=== PATIENT | male | born 1955 | race Caucasian/White ===

== ENCOUNTER 2018-06-11 08:25 | Emergency (ER) | payer OTHER ==
[~2018-06-11] VITALS: Ht 175.3 cm; Wt 99.8 kg
[~2018-06-11 08:25] MED LIST: ALBUTEROL SULF8.5 GM INH; LEVAQUIN750 MG ORAL; TAMIFLU75 MG ORAL
[2018-06-11 08:33] VITALS: BP 126/82
--- NOTE | 2018-06-11 08:33 | NUR ---
ED Nurse Note: PT WALKED IN TO ER TODAY FROM HOME. AOX4. PT C/O BURNING SENSATION WHILE URINATING AND INCREASED URINARY FREQUENCY X 1 WEEK. PT DENIES DISCHARGE OR BLEEDING. PT DENIES PAIN. PT DENIES DIFFICULTY URINATING.
[2018-06-11 09:06] LABS: APPEARANCE,URINE CLEAR; BILIRUBIN, URINE NEGATIVE (NEGATIVE); COLOR,URINE PALE YELLOW; GLUCOSE, URINE (UA) 4+ (NEGATIVE); KETONES,URINE 2+ (NEGATIVE); LEUKOCYTE ESTERASE ,URINE 3+ (NEGATIVE); NITRITE,URINE NEGATIVE (NEGATIVE); PH,URINE 5 (4.5-8.0); PROTEIN,URINE 1+ (NEGATIVE); UROBILINOGEN,URINE NORMAL MG/DL (0.0-1.0)
[2018-06-11 10:27] LABS: BASOPHILS % (AUTO) 1.1 % (0.0-2.0); EOSINOPHILS % (AUTO) 4.6 % (0.0-3.0); HEMATOCRIT 46.2 % (42.0-52.0); HEMOGLOBIN 15.8 G/DL (14.2-18.0); MEAN CORPUSCULAR VOLUME 85 FL (80-99); MONOCYTES % (AUTO) 6.6 % (1.0-10.0); NEUTROPHILS % (AUTO) 53.7 % (45.0-75.0); PLATELET COUNT 223 K/UL (150-450); RED BLOOD COUNT 5.47 M/UL (4.70-6.10); RED CELL DISTRIBUTION WIDTH 11.4 % (11.6-14.8); WHITE BLOOD COUNT 10.7 K/UL (4.8-10.8)
[2018-06-11 10:36] LABS: ANION GAP 11 mmol/L (5-15); BLOOD UREA NITROGEN 18 mg/dL (7-18); CALCIUM 9.7 MG/DL (8.5-10.1); CARBON DIOXIDE 25 MMOL/L (21-32); CHLORIDE 101 MMOL/L (98-107); CREATININE 1.1 MG/DL (0.55-1.30); POTASSIUM 4.1 MMOL/L (3.5-5.1); SODIUM 137 MMOL/L (136-145)
[2018-06-11 10:42] LABS: ALANINE AMINOTRANSFERASE 30 U/L (12-78); ALBUMIN 3.4 G/DL (3.4-5.0); ALBUMIN/GLOBULIN RATIO 0.9 (1.0-2.7); ALKALINE PHOSPHATASE 90 U/L (46-116); ASPARTATE AMINO TRANSFERASE 5 U/L (15-37); BILIRUBIN,TOTAL 0.4 MG/DL (0.2-1.0)
[2018-06-11] MEDS ORDERED: metFORMIN 500mg tab ORAL ONE (14:00)
[2018-06-11] MEDS ORDERED: Lotrisone Cream 15gm TOPIC ONE (14:00)
--- NOTE | 2018-06-11 14:00 | NUR ---
ED Nurse Note: pt states he cannot stay over night, refused to be admitted, ERMD notified
--- NOTE | 2018-06-11 14:16 | Emergency Room Report ---
History of Present Illness General Chief Complaint: Male Urogenital Problems Source: Patient Present Illness Allergies: Coded Allergies: No Known Allergies (Unverified , 06/29/13) Nursing Documentation-[facility] Past Medical History: No History, Except For Hx Hypertension: Yes Physical Exam Vital Signs Date Time Temp Pulse Resp B/P (MAP) Pulse Ox O2 Delivery O2 Flow Rate FiO2 06/11/18 08:29 98.2 70 20 121/79 98 Room Air Medical Decision Making Diagnostic Impression: Primary Impression: Balanitis Additional Impressions: Diabetes Hyperglycemia Laboratory Tests Test 06/11/18 08:40 06/11/18 10:15 Urine Color Pale yellow Urine Appearance Clear Urine pH 5 (4.5-8.0) Urine Specific [place] 1.020 (1.005-1.035) Urine Protein 1+ (NEGATIVE) H Urine Glucose (UA) 4+ (NEGATIVE) H Urine Ketones 2+ (NEGATIVE) H Urine Blood 1+ (NEGATIVE) H Urine Nitrite Negative (NEGATIVE) Urine Bilirubin Negative (NEGATIVE) Urine Urobilinogen Normal MG/DL (0.0-1.0) Urine Leukocyte Esterase 3+ (NEGATIVE) H Urine RBC 0-2 /HPF (0 - 0) H Urine WBC 2-4 /HPF (0 - 0) Urine Squamous Epithelial Cells None /LPF (NONE/OCC) Urine Bacteria Few /HPF (NONE) White Blood Count 10.7 K/UL (4.8-10.8) Red Blood Count 5.47 M/UL (4.70-6.10) Hemoglobin 15.8 G/DL (14.2-18.0) Hematocrit 46.2 % (42.0-52.0) Mean Corpuscular Volume 85 FL (80-99) Mean Corpuscular Hemoglobin 28.9 PG (27.0-31.0) Mean Corpuscular Hemoglobin Concent 34.1 G/DL (32.0-36.0) Red Cell Distribution Width 11.4 % (11.6-14.8) L Platelet Count 223 K/UL (150-450) Mean Platelet Volume 8.5 FL (6.5-10.1) Neutrophils (%) (Auto) 53.7 % (45.0-75.0) Lymphocytes (%) (Auto) 34.0 % (20.0-45.0) Monocytes (%) (Auto) 6.6 % (1.0-10.0) Eosinophils (%) (Auto) 4.6 % (0.0-3.0) H Basophils (%) (Auto) 1.1 % (0.0-2.0) Sodium Level 137 MMOL/L (136-145) Potassium Level 4.1 MMOL/L (3.5-5.1) Chloride Level 101 MMOL/L (98-107) Carbon Dioxide Level 25 MMOL/L (21-32) Anion Gap 11 mmol/L (5-15) Blood Urea Nitrogen 18 mg/dL (7-18) Creatinine 1.1 MG/DL (0.55-1.30) Estimate Glomerular Filtration Rate > 60 mL/min (>60) Glucose Level 319 MG/DL (74-106) H Calcium Level 9.7 MG/DL (8.5-10.1) Magnesium Level 1.8 MG/DL (1.8-2.4) Total Bilirubin 0.4 MG/DL (0.2-1.0) Aspartate Amino Transferase (AST) 5 U/L (15-37) L Alanine Aminotransferase (ALT) 30 U/L (12-78) Alkaline Phosphatase 90 U/L (46-116) Total Protein 7.4 G/DL (6.4-8.2) Albumin 3.4 G/DL (3.4-5.0) Globulin 4.0 g/dL Albumin/Globulin Ratio 0.9 (1.0-2.7) L Acetone Level Negative (NEGATIVE) Last Vital Signs Date Time Temp Pulse Resp B/P (MAP) Pulse Ox O2 Delivery O2 Flow Rate FiO2 06/11/18 08:33 98.4 74 18 126/82 98 Room Air Disposition: AGAINST MEDICAL ADVICE Scripts Metformin Hcl* (METFORMIN HCL*) 500 Mg Tablet 500 MG ORAL TWICE A DAY, #60 TAB Prov: Danielle Langston DO 06/11/18 Clotrimazole* (LOTRIMIN*) 15 Gm Cream..g. 1 APPLIC TOPIC TWICE A DAY, #30 GM Prov: Danielle Langston DO 06/11/18 Referrals: [facility],REFERRING (PCP) Danielle Langston DO Jun 11, 2018 14:16
[2018-06-11] MEDS ORDERED: METFORMIN HCL500 M1 ORAL (14:40)
[2018-06-11] MEDS ORDERED: CLOTRIMAZOLE15 GM TOPIC (14:40)
--- NOTE | 2018-06-11 14:50 | NUR ---
ED Nurse Note: pt req copy of blood and urine result, ERMD notified.
[2018-06-11 14:58] VITALS: BP 126/68
--- NOTE | 2018-06-11 14:59 | NUR ---
ED Nurse Note: pt discharge instruction provided w/ prescription, pt verbalized understanding and agrees with plan, pt education done, pt advised to follow up w/ pcp in 2-3days, return to ED if s/s worsen or new s/s develop, pt belongings left w/ pt, id band removed, pt iv d/c dressing applied. pt ambulatory, AA&ox4, gcs=15, vss.
--- NOTE | 2018-06-12 16:30 | Cardiology Report ---
APPROVED REPORT EKG Measurement Heart [id number] Normal sinus rhythm Normal ECG
== END 2018-06-11 15:01 | disposition left against medical advice (07) ==
LOC: EMR 09:16
DX: N48.1 Balanitis (principal); I10 Essential (primary) hypertension; E11.65 Type 2 diabetes mellitus with hyperglycemia
CPT/HCPCS: 36415; 80053; 81003; 82009; 82962; 83735; 85025; 93005; 96360; 99284

== ENCOUNTER 2019-01-21 11:10 | Emergency (ER) | payer OTHER ==
[~2019-01-21] VITALS: Ht 175.3 cm; Wt 90.7 kg
[~2019-01-21 11:10] MED LIST changes: +CLOTRIMAZOLE15 GM TOPIC; +METFORMIN HCL500 M1 ORAL
[2019-01-21 11:21] VITALS: BP 137/92
--- NOTE | 2019-01-21 11:47 | Emergency Room Report ---
History of Present Illness General Chief Complaint: Back Pain-No Injury Source: Patient Present Illness HPI This is a 63-year-old male presents after increased left-sided flank pain. Patient reports of increased pain for the past few days. This began from the left side of his abdomen and radiates to his left lower abdomen. He denies any fever. He had not been losing weight. Prior history of type 2 diabetes. He had been having normal urination. He denies any hematuria or urinary hesitancy. He denies any weight loss. He reports having a prior history of type 2 diabetes and states his sugar has been adequately controlled. Allergies: Coded Allergies: No Known Allergies (Unverified , 06/29/13) Patient History Reviewed Nursing Documentation: PMH: Agreed; PSxH: Agreed Nursing Documentation-PMH Past Medical History: No History, Except For Hx Cardiac Problems: Yes - High cholesterol Hx Hypertension: Yes Hx Diabetes: Yes Review of Systems All Other Systems: negative except mentioned in HPI Physical Exam Vital Signs Date Time Temp Pulse Resp B/P (MAP) Pulse Ox O2 Delivery O2 Flow Rate FiO2 01/21/19 11:14 97.7 75 20 137/92 (107) 94 Room Air Sp02 EP Interpretation: reviewed, normal General Appearance: normal inspection, well appearing, no apparent distress, alert, GCS 15, non-toxic, obese, Chronically Ill Head: atraumatic ENT: normal ENT inspection, hearing grossly normal, normal voice Neck: normal inspection, full range of motion, supple, no bony tend Respiratory: normal inspection, lungs clear, normal breath sounds, no respiratory distress, no retraction, no wheezing Cardiovascular #1: regular rate, rhythm, no edema Gastrointestinal: normal inspection, normal bowel sounds, non tender, soft, no guarding Genitourinary: no CVA tenderness Musculoskeletal: normal inspection, back normal, normal range of motion, decreased range of motion Neurologic: normal inspection, alert, oriented x3, responsive, computer artist III-XII nml as tested, speech normal Psychiatric: normal inspection, judgement/insight normal, mood/affect normal Medical Decision Making Diagnostic Impression: Primary Impression: Nonspecific low back pain Additional Impressions: Bilateral inguinal hernia Lung nodule seen on imaging study ER Course Patient present for low back pain. Differential diagnosis include was not limited to renal stone, aortic aneurysm, prostate metastases, cauda equina syndrome, among others. Because of complexity of patient's case imaging studies were ordered.patient exam does not show any evidence of pulsatile mass. Patient was noted to have moderate back pain worse with movement. CT imaging of the abdomen pelvis read by radiology showed bilateral fat filled inguinal hernias as well as a pulmonary nodule which are incidental findings. There is no evidence of renal stone. Patient was given pain medications with some improvement. He was given prescriptions for medications for discomfort. He is advised to follow-up with his primary care physician for further evaluation of lung nodule. He is advised to return if worse. Labs Test 01/21/19 12:45 Urine Color Pale yellow Urine Appearance Clear Urine pH 6 (4.5-8.0) Urine Specific [place] 1.015 (1.005-1.035) Urine Protein Negative (NEGATIVE) Urine Glucose (UA) Negative (NEGATIVE) Urine Ketones Negative (NEGATIVE) Urine Blood Negative (NEGATIVE) Urine Nitrite Negative (NEGATIVE) Urine Bilirubin Negative (NEGATIVE) Urine Urobilinogen Normal MG/DL (0.0-1.0) Urine Leukocyte Esterase Negative (NEGATIVE) Last Vital Signs Date Time Temp Pulse Resp B/P (MAP) Pulse Ox O2 Delivery O2 Flow Rate FiO2 01/21/19 11:21 97.7 75 20 137/92 94 Room Air Status: improved Disposition: HOME, SELF-CARE Condition: Stable Scripts Ibuprofen (Ibuprofen) 400 Mg Tablet 400 MG PO EVERY 8 HOURS, #30 TAB Prov: Sumit Maurice MD 01/21/19 Cyclobenzaprine Hcl* (FLEXERIL*) 10 Mg Tablet 10 MG ORAL THREE TIMES A DAY, #14 TAB Prov: Sumit Maurice MD 01/21/19 Sumit Maurice MD Jan 21, 2019 11:47
[2019-01-21] MEDS ORDERED: Ketorolac 60mg Inj IM ONE (12:00)
--- NOTE | 2019-01-21 12:55 | Diagnostic Imaging Report ---
Indication: Abdominal pain and flank pain Technique: Spiral acquisitions obtained through the abdomen and pelvis. No oral or IV contrast utilized, per urinary stone protocol. Multiplanar reconstructions were generated. Total dose length product 1082.3 mGycm. CTDIvol(s) 19.07 mGy. Dose reduction achieved using automated exposure control Comparison: none Findings: No renal calculi demonstrated. No ureteral calculi, hydronephrosis, or hydroureter. Lack of IV contrast limits assessment of the renal parenchyma. No gross renal parenchymal mass or cyst demonstrated. There is mild stranding of the perinephric fat bilaterally. Lack of IV contrast limits assessment of the other solid organs. The liver is mildly hypoattenuating. No focal abnormality. The gallbladder contains at least one calcified gallstone. No biliary ductal dilatation. The pancreas, spleen, adrenals are unremarkable. No retroperitoneal or mesenteric mass or adenopathy. No pelvic mass or adenopathy. There are small bilateral fat-containing single hernias incidentally noted. No evidence of diverticulosis or diverticulitis. The appendix is normal. No small bowel distention. No free or loculated intraperitoneal gas or fluid is evident. Distal esophagus, stomach, duodenum are unremarkable. The included lung bases demonstrate some posterior dependent atelectatic changes. There is a 7 mm subpleural nodule in the right middle lobe. Bones are unremarkable. Impression: No evidence of urinary stone disease or obstructive uropathy Nonspecific bilateral perinephric fat stranding No acute process otherwise Mild hepatic hypoattenuation, consistent with fatty change Cholelithiasis 7 mm subpleural right middle nodule. Recommend follow-up CT in 6-12 months or comparison with any prior exams and may be available Incidental finding of small bilateral fat-containing inguinal hernias The CT scanner at [facility] is accredited by the [employer] and the scans are performed using protocols designed to limit radiation exposure to as low as reasonably achievable to attain images of sufficient resolution adequate for diagnostic evaluation.
[2019-01-21 12:58] LABS: APPEARANCE,URINE CLEAR; BILIRUBIN, URINE NEGATIVE (NEGATIVE); COLOR,URINE PALE YELLOW; GLUCOSE, URINE (UA) NEGATIVE (NEGATIVE); KETONES,URINE NEGATIVE (NEGATIVE); LEUKOCYTE ESTERASE ,URINE NEGATIVE (NEGATIVE); NITRITE,URINE NEGATIVE (NEGATIVE); PH,URINE 6 (4.5-8.0); PROTEIN,URINE NEGATIVE (NEGATIVE); UROBILINOGEN,URINE NORMAL MG/DL (0.0-1.0)
[2019-01-21] MEDS ORDERED: IBUPROFEN400 M1 PO (13:21)
[2019-01-21] MEDS ORDERED: CYCLOBENZAPRINE10 MG ORAL (13:21)
[2019-01-21 13:52] VITALS: BP 137/92
== END 2019-01-21 13:52 | disposition home or self-care (01) ==
LOC: EMR 11:40
DX: K40.20 Bilateral inguinal hernia, without obstruction or gangrene, not specified as recurrent (principal); M54.5 Low back pain; I10 Essential (primary) hypertension; E11.9 Type 2 diabetes mellitus without complications; E78.00 Pure hypercholesterolemia, unspecified; R91.1 Solitary pulmonary nodule
CPT/HCPCS: 74176; 81003; 96372; 99284

== ENCOUNTER 2019-08-14 20:01 | Inpatient (IN) | payer OTHER ==
[~2019-08-14] VITALS: Ht 177.8 cm; Wt 99.8 kg
[~2019-08-14 20:01] MED LIST changes: +CYCLOBENZAPRINE10 MG ORAL; +IBUPROFEN400 M1 PO
[2019-08-14 20:12] VITALS: BP 151/75
[2019-08-14 21:12] LABS: BASOPHILS % (AUTO) 1.4 % (0.0-2.0); EOSINOPHILS % (AUTO) 2.8 % (0.0-3.0); HEMATOCRIT 43.8 % (42.0-52.0); HEMOGLOBIN 14.5 G/DL (14.2-18.0); LYMPHOCYTES % (AUTO) 19.6 % (20.0-45.0); MEAN CORPUSCULAR VOLUME 86 FL (80-99); MONOCYTES % (AUTO) 8.5 % (1.0-10.0); NEUTROPHILS % (AUTO) 67.7 % (45.0-75.0); PLATELET COUNT 225 K/UL (150-450); RED BLOOD COUNT 5.09 M/UL (4.70-6.10); RED CELL DISTRIBUTION WIDTH 13.1 % (11.6-14.8); WHITE BLOOD COUNT 16.9 K/UL (4.8-10.8)
[2019-08-14 21:14] LABS: APPEARANCE,URINE CLEAR; BILIRUBIN, URINE NEGATIVE (NEGATIVE); COLOR,URINE PALE YELLOW; GLUCOSE, URINE (UA) 4+ (NEGATIVE); KETONES,URINE 3+ (NEGATIVE); LEUKOCYTE ESTERASE ,URINE NEGATIVE (NEGATIVE); NITRITE,URINE NEGATIVE (NEGATIVE); PH,URINE 5 (4.5-8.0); PROTEIN,URINE NEGATIVE (NEGATIVE); UROBILINOGEN,URINE NORMAL MG/DL (0.0-1.0)
[2019-08-14 21:27] LABS: ANION GAP 10 mmol/L (5-15); BLOOD UREA NITROGEN 24 mg/dL (7-18); CALCIUM 9.6 MG/DL (8.5-10.1); CARBON DIOXIDE 26 MMOL/L (21-32); CHLORIDE 103 MMOL/L (98-107); CREATININE 1.1 MG/DL (0.55-1.30); POTASSIUM 3.9 MMOL/L (3.5-5.1); SODIUM 139 MMOL/L (136-145)
[2019-08-14 21:38] LABS: ALANINE AMINOTRANSFERASE 26 U/L (12-78); ALBUMIN 3.5 G/DL (3.4-5.0); ALBUMIN/GLOBULIN RATIO 0.8 (1.0-2.7); ALKALINE PHOSPHATASE 46 U/L (46-116); ASPARTATE AMINO TRANSFERASE 20 U/L (15-37); BILIRUBIN,TOTAL 0.8 MG/DL (0.2-1.0)
[2019-08-14] MEDS ORDERED: Albuterol/Ipratropium 3ml neb HHN ONE (22:00)
[2019-08-14 22:10] VITALS: BP 122/78
--- NOTE | 2019-08-14 22:20 | Emergency Room Report ---
History of Present Illness General Chief Complaint: General Complaint Source: Patient (Sumit Maurice MD) Present Illness HPI Patient is a 64-year-old male presented after increased cough and sore throat. Had onset of symptoms approximately 2 to 3 days ago. Reports of increased generalized weakness. Denies any headache. Had no known recent sick contacts. Denies any recent travel. Denies being a smoker. Prior history of type 2 diabetes. States he occasionally drinks alcohol. Denies any recent alcohol intake. COVID-19 risk:Travel to affect: No Has patient experienced coronel: No Coronavirus symptoms experienc: Cough, Flu-Like Symptoms (Sumit Maurice MD) Allergies: Coded Allergies: No Known Allergies (Unverified , 06/29/13) Patient History Past Medical History: see triage record Reviewed Nursing Documentation: PMH: Agreed; PSxH: Agreed (Sumit Maurice MD) Nursing Documentation-PMH Hx Cardiac Problems: Yes - High cholesterol Hx Hypertension: Yes Hx Diabetes: Yes (Sumit Maurice MD) Review of Systems All Other Systems: negative except mentioned in HPI (Sumit Maurice MD) Physical Exam Vital Signs Date Time Temp Pulse Resp B/P (MAP) Pulse Ox O2 Delivery O2 Flow Rate FiO2 08/14/19 20:09 98.1 89 23 92 Room Air 08/14/19 20:12 151/75 Sp02 EP Interpretation: reviewed, normal General Appearance: normal inspection, well appearing, alert, GCS 15, obese, Chronically Ill Head: atraumatic ENT: normal ENT inspection, hearing grossly normal, normal voice Neck: normal inspection, full range of motion, supple, no bony tend Respiratory: normal inspection, lungs clear, normal breath sounds, no respiratory distress, no retraction, no wheezing Cardiovascular #1: regular rate, rhythm, no edema Gastrointestinal: normal inspection, normal bowel sounds, non tender, soft, no guarding, no hernia Genitourinary: no CVA tenderness Musculoskeletal: normal inspection, back normal, normal range of motion Neurologic: alert, motor strength/tone normal, gas and oil servicer III-XII nml as tested, oriented x3, responsive, speech normal, normal inspection Psychiatric: normal inspection, judgement/insight normal, mood/affect normal (Sumit Maurice MD) Medical Decision Making ER Course Patient presented for cough and difficulty breathing. Differential diagnosis include was not limited to pneumonia, myocardial infarction, viral respiratory infection, among others. Because of complexity of patient's case laboratory tests and imaging studies were ordered. CRP was noted to be elevated. Patient was noted to have somewhat elevated white blood count. Patient was noted to have some difficulty with breathing. chest x-ray showed nonspecific changes.CT imaging was ordered to patient's elevated white count and no definite infiltrate. Patient was endorsed to pending CT imaging studies. Labs Test 08/14/19 20:41 White Blood Count 16.9 K/UL (4.8-10.8) Red Blood Count 5.09 M/UL (4.70-6.10) Hemoglobin 14.5 G/DL (14.2-18.0) Hematocrit 43.8 % (42.0-52.0) Mean Corpuscular Volume 86 FL (80-99) Mean Corpuscular Hemoglobin 28.4 PG (27.0-31.0) Mean Corpuscular Hemoglobin Concent 33.1 G/DL (32.0-36.0) Red Cell Distribution Width 13.1 % (11.6-14.8) Platelet Count 225 K/UL (150-450) Mean Platelet Volume 9.6 FL (6.5-10.1) Neutrophils (%) (Auto) 67.7 % (45.0-75.0) Lymphocytes (%) (Auto) 19.6 % (20.0-45.0) Monocytes (%) (Auto) 8.5 % (1.0-10.0) Eosinophils (%) (Auto) 2.8 % (0.0-3.0) Basophils (%) (Auto) 1.4 % (0.0-2.0) Urine Color Pale yellow Urine Appearance Clear Urine pH 5 (4.5-8.0) Urine Specific [place] 1.015 (1.005-1.035) Urine Protein Negative (NEGATIVE) Urine Glucose (UA) 4+ (NEGATIVE) Urine Ketones 3+ (NEGATIVE) Urine Blood Negative (NEGATIVE) Urine Nitrite Negative (NEGATIVE) Urine Bilirubin Negative (NEGATIVE) Urine Urobilinogen Normal MG/DL (0.0-1.0) Urine Leukocyte Esterase Negative (NEGATIVE) Urine RBC 0-2 /HPF (0 - 0) Urine WBC 0-2 /HPF (0 - 0) Urine Squamous Epithelial Cells None /LPF (NONE/OCC) Urine Bacteria Few /HPF (NONE) Sodium Level 139 MMOL/L (136-145) Potassium Level 3.9 MMOL/L (3.5-5.1) Chloride Level 103 MMOL/L (98-107) Carbon Dioxide Level 26 MMOL/L (21-32) Anion Gap 10 mmol/L (5-15) Blood Urea Nitrogen 24 mg/dL (7-18) Creatinine 1.1 MG/DL (0.55-1.30) Estimat Glomerular Filtration Rate > 60 mL/min (>60) Glucose Level 136 MG/DL (74-106) Calcium Level 9.6 MG/DL (8.5-10.1) Total Bilirubin 0.8 MG/DL (0.2-1.0) Aspartate Amino Transf (AST/SGOT) 20 U/L (15-37) Alanine Aminotransferase (ALT/SGPT) 26 U/L (12-78) Alkaline Phosphatase 46 U/L (46-116) Troponin I 0.000 ng/mL (0.000-0.056) C-Reactive Protein, Quantitative 10.6 mg/dL (0.00-0.90) Pro-B-Type Natriuretic Peptide 87 pg/mL (0-125) Total Protein 7.7 G/DL (6.4-8.2) Albumin 3.5 G/DL (3.4-5.0) Globulin 4.2 g/dL Albumin/Globulin Ratio 0.8 (1.0-2.7) Lipase 129 U/L (73-393) (Sumit Maurice MD) EKG Diagnostic Results Rate: normal Rhythm: NSR ST Segments: no acute changes (Sumit Maurice MD) CT/MRI/US Diagnostic Results CT/MRI/US Diagnostic Results : Impression Preliminary Findings Only See Final Report For Complete Findings CT CHEST Without Contrast: No prior exam for comparison. Mild cardiomegaly. Minimal coronary artery calcifications. Mild atherosclerotic disease of aorta with no aneurysmal dilatation. Normal mediastinum, hilar regions, trachea and bilateral bronchi. Upper abdomen: Tiny stones within the gallbladder which is partially contracted. The remainder of the liver, spleen and upper abdominal viscera unremarkable. Decompressed stomach. Lungs: Minimal focal subpleural cystic/emphysematous change at the right lung apex. Mild posterior lower lobe atelectasis, remainder of the lungs are clear. No pleural effusion or pneumothorax. Degenerative disease of the spine. Radiologist: Breann Pratt MD (Bam Braxton MD) Last Vital Signs Date Time Temp Pulse Resp B/P (MAP) Pulse Ox O2 Delivery O2 Flow Rate FiO2 08/14/19 20:12 72 22 Room Air 08/14/19 20:12 98.1 151/75 94 Status: improved (Sumit Maurice MD) Reevaluation Time: 23:07 Reevaluation Impression Assumed care of the patient from previous provider pending CT scan of the chest. Briefly, this 64-year-old male presenting for evaluation of upper respiratory symptoms and nonproductive cough. He arrives afebrile with stable vital signs. White count elevated, CRP elevated. CT scan initially concerning for groundglass opacities. Official radiology interpretation notes emphysematous changes. He was given ceftriaxone and azithromycin for treatment of possible early community-acquired pneumonia. Discussed with [facility]. He does not meet criteria for testing of novel coronavirus until he has had respiratory screen and RSV testing as well to rule out other causes of infection. His flu swab is negative. He will be transferred to [facility] for admission. (Bam Braxton MD) Disposition: [facility] Referrals: [facility],REFERRING (PCP) Sumit Maurice MD Aug 14, 2019 22:20 Bam Braxton MD Aug 14, 2019 23:08
[2019-08-14] MEDS ORDERED: cefTRIAXone 1 GM in NS 55 ML IVPB ONE (23:00)
[2019-08-14] MEDS ORDERED: Azithromycin 500 MG in NS 275 ML IV ONE (23:00)
--- NOTE | 2019-08-14 23:05 | Diagnostic Imaging Report ---
Indication: Chest pain Technique: Continuous helical transaxial imaging of the chest was obtained from the thoracic inlet to the upper abdomen. No intravenous contrast was administered. Coronal 2-D reformats were also obtained. Total Dose length Product (DLP): 444.[address] Dose Index Volume (CTDIvol): 13.2 mGy Comparison: none Findings: There is no infiltrate airspace disease identified. There is minimal prominence of the peripheral interstitium at the lung bases which may be chronic but nonspecific. This may be due to mild scarring. There is a 5 mm pleural-based nodule in the middle lobe (image 31/series 5). Follow up suggested. At the apical aspect of the right upper lobe there is a mild paraseptal bleb formation which is nonspecific. There is breathing motion limiting evaluation. The heart is mildly enlarged. The aorta shows some mural calcium. No pleural or pericardial effusion identified. There is a small hiatal hernia. Tiny gallstones are present. IMPRESSION: No evidence of pneumonia. Minimal peripheral interstitial prominence at the periphery of the lung bases probably chronic. This may be due to mild scarring but is nonspecific. 5 mm nodule in the middle lobe. Recommend follow-up CT chest in 6 months per Fleischner Society criteria. Minimal right apical paraseptal bleb formation. This is nonspecific. Mild arterial vascular disease. Cholelithiasis incidentally noted The CT scanner at [facility] is accredited by the [employer] and the scans are performed using dose optimization techniques as appropriate to a performed exam including Automatic Exposure control.
[2019-08-15] VITALS (10 sets, daily range): BP systolic 109–148; BP diastolic 54–86
[2019-08-15] MEDS ORDERED: Miralax 17gm pkt ORAL PRN ×2 (07:15→18:35)
[2019-08-15] MEDS ORDERED: LORazepam Inj 2mg/ml 1ml IV PRN (07:15)
[2019-08-15] MEDS ORDERED: Promethazine/Codeine 5ml UD ORAL PRN ×2 (07:15→18:35)
[2019-08-15] MEDS ORDERED: Albuterol/Ipratropium 3ml neb HHN PRN ×2 (07:15→18:34)
[2019-08-15] MEDS ORDERED: Vancomycin 1 GM in D5W 275 ML IVPB SCH (08:00)
[2019-08-15] MEDS ORDERED: Cefepime HCl 2 GM in D5W 110 ML IV SCH (09:00)
[2019-08-15] MEDS ORDERED: Heparin 5000 units/ml inj SUBQ SCH (09:00)
--- NOTE | 2019-08-15 10:57 | Consultation ---
History of Present Illness General Date patient seen: Aug 15, 2019 Chief Complaint: General Complaint Present Illness HPI 64-year-old male with hx of HTN, DM, presented to ER with CC of cough and sore throat for 2 to 3 days. Complaining of increased generalized weakness. Denies any headache. Had no known recent sick contacts. Denies any recent travel. Denies being a smoker. Allergies: Coded Allergies: No Known Allergies (Unverified , 06/29/13) Medication History Scheduled Albuterol Sulfate* (Albuterol Sulfate Mdi*), 2 PUFF INH Q3H Ibuprofen (Ibuprofen), 400 MG PO EVERY 8 HOURS Metformin Hcl* (Metformin Hcl*), 500 MG ORAL TWICE A DAY Discontinued Medications Clotrimazole* (Lotrimin*), 1 APPLIC TOPIC TWICE A DAY Discontinued Reason: Therapy completed Cyclobenzaprine Hcl* (Flexeril*), 10 MG ORAL THREE TIMES A DAY Discontinued Reason: Therapy completed Levofloxacin* (Levaquin*), 750 MG ORAL DAILY Discontinued Reason: Therapy completed Oseltamivir Phosphate (Tamiflu), 75 MG ORAL TWICE A DAY Discontinued Reason: Therapy completed Patient History Healthcare decision maker Resuscitation status Full Code Advanced Directive on File Past Medical/Surgical History Past Medical/Surgical History: (1) History of diabetes mellitus (2) History of hypertension Review of Systems All Other Systems: negative except mentioned in HPI Physical Exam General Appearance: WD/WN Lines, tubes and drains: peripheral HEENT: normocephalic, atraumatic Neck: non-tender, normal alignment Respiratory/Chest: chest wall non-tender, lungs clear Breasts: no masses Cardiovascular/Chest: normal peripheral pulses Abdomen: normal bowel sounds Genitourinary/Rectal: normal genital exam Extremities: normal range of motion Last 24 Hour Vital Signs Date Time Temp Pulse Resp B/P (MAP) Pulse Ox O2 Delivery O2 Flow Rate FiO2 08/15/19 08:42 97.3 79 20 123/72 (89) 96 08/15/19 08:04 Room Air 08/15/19 07:50 98.0 110 20 142/68 95 Room Air 21 08/15/19 06:32 70 20 148/64 95 Room Air 08/15/19 04:21 78 14 128/86 94 Room Air 08/15/19 02:12 78 14 125/72 94 Room Air 08/15/19 01:32 79 16 130/79 94 Room Air 08/15/19 00:05 71 20 128/78 96 Room Air 08/14/19 22:24 92 20 98 Room Air 21 94 20 90 08/14/19 22:10 75 12 122/78 94 Room Air 08/14/19 20:12 72 22 Room Air 08/14/19 20:12 98.1 72 22 151/75 94 Room Air 08/14/19 20:09 98.1 89 23 92 Room Air Intake and Output 08/14/19 08/15/19 19:00 07:00 Intake Total 330 ml Balance 330 ml Intake Oral 0 ml IV Total 330 ml Laboratory Tests Test 08/14/19 20:41 White Blood Count 16.9 K/UL (4.8-10.8) H Red Blood Count 5.09 M/UL (4.70-6.10) Hemoglobin 14.5 G/DL (14.2-18.0) Hematocrit 43.8 % (42.0-52.0) Mean Corpuscular Volume 86 FL (80-99) Mean Corpuscular Hemoglobin 28.4 PG (27.0-31.0) Mean Corpuscular Hemoglobin Concent 33.1 G/DL (32.0-36.0) Red Cell Distribution Width 13.1 % (11.6-14.8) Platelet Count 225 K/UL (150-450) Mean Platelet Volume 9.6 FL (6.5-10.1) Neutrophils (%) (Auto) 67.7 % (45.0-75.0) Lymphocytes (%) (Auto) 19.6 % (20.0-45.0) L Monocytes (%) (Auto) 8.5 % (1.0-10.0) Eosinophils (%) (Auto) 2.8 % (0.0-3.0) Basophils (%) (Auto) 1.4 % (0.0-2.0) Urine Color Pale yellow Urine Appearance Clear Urine pH 5 (4.5-8.0) Urine Specific [place] 1.015 (1.005-1.035) Urine Protein Negative (NEGATIVE) Urine Glucose (UA) 4+ (NEGATIVE) H Urine Ketones 3+ (NEGATIVE) H Urine Blood Negative (NEGATIVE) Urine Nitrite Negative (NEGATIVE) Urine Bilirubin Negative (NEGATIVE) Urine Urobilinogen Normal MG/DL (0.0-1.0) Urine Leukocyte Esterase Negative (NEGATIVE) Urine RBC 0-2 /HPF (0 - 0) H Urine WBC 0-2 /HPF (0 - 0) Urine Squamous Epithelial Cells None /LPF (NONE/OCC) Urine Bacteria Few /HPF (NONE) Sodium Level 139 MMOL/L (136-145) Potassium Level 3.9 MMOL/L (3.5-5.1) Chloride Level 103 MMOL/L (98-107) Carbon Dioxide Level 26 MMOL/L (21-32) Anion Gap 10 mmol/L (5-15) Blood Urea Nitrogen 24 mg/dL (7-18) H Creatinine 1.1 MG/DL (0.55-1.30) Estimat Glomerular Filtration Rate > 60 mL/min (>60) Glucose Level 136 MG/DL (74-106) H Calcium Level 9.6 MG/DL (8.5-10.1) Total Bilirubin 0.8 MG/DL (0.2-1.0) Aspartate Amino Transf (AST/SGOT) 20 U/L (15-37) Alanine Aminotransferase (ALT/SGPT) 26 U/L (12-78) Alkaline Phosphatase 46 U/L (46-116) Troponin I 0.000 ng/mL (0.000-0.056) C-Reactive Protein, Quantitative 10.6 mg/dL (0.00-0.90) H Pro-B-Type Natriuretic Peptide 87 pg/mL (0-125) Total Protein 7.7 G/DL (6.4-8.2) Albumin 3.5 G/DL (3.4-5.0) Globulin 4.2 g/dL Albumin/Globulin Ratio 0.8 (1.0-2.7) L Lipase 129 U/L (73-393) Microbiology Date/Time Source Procedure Growth Status 08/14/19 20:41 Nasal Nares - Final Complete 08/14/19 20:41 Nasal Nares - Final Complete Height (Feet): 5 Height (Inches): 10.00 Weight (Pounds): 220 Medications Current Medications Medications (Trade) Dose Ordered Sig/Blanca Route PRN Reason Start Time Stop Time Status Last Admin Dose Admin Acetaminophen (Tylenol) 650 mg Q4H PRN ORAL FEVER 08/15/19 07:15 09/14/19 07:14 Albuterol/ Ipratropium (Albuterol/ Ipratropium) 3 ml Q4H PRN HHN Shortness of Breath 08/15/19 07:15 08/20/19 07:14 Cefepime HCl 2 gm/ Dextrose 110 ml @ 220 mls/hr EVERY 12 HOURS IV 08/15/19 09:00 08/22/19 08:59 08/15/19 09:55 Dextrose (Dextrose 50%) 25 ml Q30M PRN IV Hypoglycemia 08/15/19 07:15 09/14/19 07:14 Dextrose (Dextrose 50%) 50 ml Q30M PRN IV Hypoglycemia 08/15/19 07:15 09/14/19 07:14 Heparin Sodium (Porcine) (Heparin 5000 units/ml) 5,000 units EVERY 12 HOURS SUBQ 08/15/19 09:00 09/29/19 08:59 08/15/19 09:55 Insulin Aspart (NovoLOG) BEFORE MEALS AND HS SUBQ 08/15/19 11:30 09/14/19 11:29 Lorazepam (Ativan 2mg/ml 1ml) 2 mg Q2H PRN IV For Anxiety 08/15/19 07:15 08/22/19 07:14 Ondansetron HCl (Zofran) 4 mg Q6H PRN IVP Nausea & Vomiting 08/15/19 07:15 09/14/19 07:14 Polyethylene Glycol (Miralax) 17 gm DAILYPRN PRN ORAL Constipation 08/15/19 07:15 09/14/19 07:14 Promethazine HCl/ Codeine (Phenergan with Codeine) 5 ml Q4H PRN ORAL For Cough 08/15/19 07:15 09/14/19 07:14 Sodium Chloride 1,000 ml @ 50 mls/hr Q20H IV 08/15/19 22:50 09/14/19 22:49 Vancomycin HCl 1 gm/Dextrose 275 ml @ 183.3 mls/ hr Q12H IVPB 08/15/19 08:00 08/20/19 07:59 08/15/19 08:47 Assessment/Plan Problem List: (1) Acute bronchitis ICD Codes: J20.9 - Acute bronchitis SNOMED: 33335278 (2) Lung nodule seen on imaging study ICD Codes: R91.1 - Solitary pulmonary nodule SNOMED: 569494853, 483475703 (3) tobacco abuse (4) History of diabetes mellitus ICD Codes: Z86.39 - Personal history of other endocrine, nutritional and metabolic disease SNOMED: 813853068 (5) History of hypertension ICD Codes: Z86.79 - Personal history of other diseases of the circulatory system SNOMED: 817153730 Assessment/Plan: respiratory treatment iv abx sputum induction f/u wbc sliding scale diabetic diet watch BP resume BP meds Madelin Maya MD Aug 15, 2019 10:57
[2019-08-15] MEDS ORDERED: Azithromycin 500 MG in D5W 275 ML IV SCH (11:00)
[2019-08-15] MEDS: NovoLOG Insulin Flexpen SUBQ SCH ×3 (11:30→21:15)
--- NOTE | 2019-08-15 12:02 | Diagnostic Imaging Report ---
Indication: Dyspnea Comparison: 06/29/2013 A single view chest radiograph was obtained. Findings: Cardiomediastinal appearance is within normal limits for age. The lungs are clear. Pulmonary vascularity is appropriate. The diaphragmatic contour is smooth and costophrenic angles are sharp. No pleural effusions are identified. The bones are unremarkable. Impression: No acute findings
[2019-08-15] MEDS ORDERED: cefTRIAXone 1 GM in D5W 55 ML IVPB SCH (13:00)
--- NOTE | 2019-08-15 16:53 | History & Physical ---
History and Physical History & Physicial Bill Sandoval MD Aug 15, 2019 16:53
--- NOTE | 2019-08-15 17:44 | History and Physical Report ---
DATE OF ADMISSION: 08/15/2019 CHIEF COMPLAINT: Shortness of breath and cough. HISTORY OF PRESENT ILLNESS: This is a 64-year-old gentleman with past medical history significant for hypertension, diabetes type 2, who presented to the emergency room complaining of sore throat, cough for the past 2 to 3 days. Today he has been having generalized weakness. Denies any headache. Denies any sick contacts or recent travel. He denies any smoking. Shortly after initial evaluation in the emergency, the patient was admitted to the hospital with shortness of breath and cough, possible due to the acute bronchitis, viral versus bacteria. PAST MEDICAL HISTORY/PAST SURGICAL HISTORY: As above. History of diabetes type 2, hypertension, morbid obesity. MEDICATIONS AT HOME: Please refer to medication reconciliation. ALLERGIES: No known drug allergies. SOCIAL HISTORY: The patient denies any smoking, alcohol, or drugs. FAMILY HISTORY: Noncontributory. REVIEW OF SYSTEMS: Mostly as above. Denies any dysuria, frequency, or hematuria. Denies any hemoptysis or hematochezia. PHYSICAL EXAMINATION: VITAL SIGNS: On admission from the emergency room, temperature 98.1, pulse of 89, respirations 23, blood pressure 151/75. GENERAL: The patient is awake, responsive, no acute distress. HEAD AND NECK: Pupils are equal and reactive to light. Extraocular movements are intact. NECK: Supple. No JVD. LUNGS: Good air entry. No wheezing or rales. HEART: Reveals S1, S2. Distant heart sounds. No gallops. ABDOMEN: Soft, nondistended, and nontender. Morbidly obese. EXTREMITIES: No cyanosis, clubbing, or edema. NEUROLOGIC: Cranial nerves II through XII grossly intact. Motor is 5/5 in all extremities. Gait is intact. RECTAL/GENITOURINARY: Refused and deferred. PSYCHIATRIC: Mood and affect is intact. LABORATORY DATA: On admission, WBC of 16, hemoglobin of 14, hematocrit of 43, and platelets is 225,000. Sodium 139, potassium 3.9, chloride 103, bicarb 26. BUN 24, creatinine 1.1, and glucose is 136. First troponin 0.00 and CRP of 10.6. Lipase is 129. Urinalysis, +4 glucose, +3 ketones, 0 to 2 rbc's, negative leukocytes. The patient had a rapid influenza, is negative. Chest x-ray, no acute finding. CT of the chest was done in the emergency room. No pneumonia. Minimal peripheral interstitial prominence at the periphery of the lung base, probably chronic and this may be due to the mild scarring but nonspecific 5 mm nodule in the mid lung. Minimal right apical paraseptal blebs formation, nonspecific. ASSESSMENT: 1. Shortness of breath and cough, possible due to the acute bronchitis, viral versus bacterial. 2. Lung nodule. 3. Tobacco use. 4. Diabetes type 2. 5. Hypertension. 6. Morbid obesity. PLAN: 1. Admit the patient to PCU. 2. We will follow up with the laboratory as well as culture. 3. Broad-spectrum antibiotic, Rocephin and azithromycin. 4. Monitor blood glucose level closely. 5. Code status, Full Code. 6. Follow up with Dr. Maya. 7. Consultation from Pulmonary and Dr. Miguel Ángel Tellez from Infectious Disease. Bill Sandoval M.D. DR: GREG JOB#: [id number] CC:
[2019-08-15] MEDS: Heparin 5000 units/ml inj SUBQ SCH (21:14)
[2019-08-16 04:00] VITALS: BP 126/66
[2019-08-16] MEDS: NovoLOG Insulin Flexpen SUBQ SCH ×2 (06:30→11:30)
[2019-08-16 06:54] LABS: BASOPHILS % (AUTO) 1.3 % (0.0-2.0); EOSINOPHILS % (AUTO) 5.3 % (0.0-3.0); HEMATOCRIT 41.1 % (42.0-52.0); HEMOGLOBIN 14.1 G/DL (14.2-18.0); LYMPHOCYTES % (AUTO) 25.9 % (20.0-45.0); MEAN CORPUSCULAR VOLUME 85 FL (80-99); MONOCYTES % (AUTO) 8.8 % (1.0-10.0); NEUTROPHILS % (AUTO) 58.8 % (45.0-75.0); PLATELET COUNT 220 K/UL (150-450); RED BLOOD COUNT 4.85 M/UL (4.70-6.10); RED CELL DISTRIBUTION WIDTH 11.7 % (11.6-14.8); WHITE BLOOD COUNT 11.5 K/UL (4.8-10.8)
[2019-08-16 07:21] LABS: ALANINE AMINOTRANSFERASE 22 U/L (12-78); ALBUMIN 2.9 G/DL (3.4-5.0); ALBUMIN/GLOBULIN RATIO 0.7 (1.0-2.7); ALKALINE PHOSPHATASE 40 U/L (46-116); ANION GAP 10 mmol/L (5-15); ASPARTATE AMINO TRANSFERASE 18 U/L (15-37); BILIRUBIN,TOTAL 0.5 MG/DL (0.2-1.0); BLOOD UREA NITROGEN 23 mg/dL (7-18); CALCIUM 9.1 MG/DL (8.5-10.1); CARBON DIOXIDE 25 MMOL/L (21-32); CHLORIDE 105 MMOL/L (98-107); CREATININE 1.1 MG/DL (0.55-1.30); POTASSIUM 3.7 MMOL/L (3.5-5.1); SODIUM 140 MMOL/L (136-145)
--- NOTE | 2019-08-16 07:22 | Pulmonology Progress Note ---
Assessment/Plan Assessment/Plan ASSESSMENT Acute bronchitis Lung nodule seen on imaging Tobacco abuse Morbid obesity Hypertension Diabetes mellitus PLAN OF CARE MS floor O2 HHN PRN abx SCX if able a/tussive prn DVT prophylaxis BP management with current regimen BS management supportive care quit smoking [address] scan in 6 months [facility] case discussed and evaluated by supervising physician Subjective Allergies: Coded Allergies: No Known Allergies (Unverified , 06/29/13) Subjective leuk trending down, remains afebrile pulse ox stable on RA Objective Last 24 Hour Vital Signs Date Time Temp Pulse Resp B/P (MAP) Pulse Ox O2 Delivery O2 Flow Rate FiO2 08/16/19 04:00 98.5 65 18 126/66 (86) 96 08/15/19 21:00 Room Air 08/15/19 20:00 98.5 72 18 112/81 (91) 93 08/15/19 18:23 98.8 74 18 126/72 (90) 93 08/15/19 16:00 66 08/15/19 16:00 97.9 67 18 109/54 (72) 94 08/15/19 12:00 76 08/15/19 12:00 98.1 73 18 130/74 (92) 96 08/15/19 09:00 Room Air 08/15/19 08:42 97.3 79 20 123/72 (89) 96 08/15/19 08:04 Room Air 08/15/19 08:00 76 08/15/19 07:50 98.0 110 20 142/68 95 Room Air 21 Intake and Output 08/15/19 08/16/19 19:00 07:00 Intake Total 700 ml Balance 700 ml Intake Oral 700 ml # Voids 4 2 General Appearance: no acute distress, other - obese male HEENT: normocephalic, atraumatic, anicteric, mucous membranes moist, PERRL Respiratory/Chest: no respiratory distress, no accessory muscle use, decreased breath sounds Cardiovascular: normal rate Abdomen: soft, non tender - obese Extremities: no edema Neurologic/Psychiatric: no motor/sensory deficits, alert, oriented x 3, responsive Musculoskeletal: normal muscle bulk Microbiology Date/Time Source Procedure Growth Status 08/14/19 20:41 Nasal Nares - Final Complete 08/14/19 20:41 Nasal Nares - Final Complete Laboratory Tests 08/16/19 06:10: White Blood Count 11.5H, Red Blood Count 4.85, Hemoglobin 14.1L, Hematocrit 41.1L, Mean Corpuscular Volume 85, Mean Corpuscular Hemoglobin 29.0, Mean Corpuscular Hemoglobin Concent 34.2, Red Cell Distribution Width 11.7, Platelet Count 220, Mean Platelet Volume 7.4, Neutrophils (%) (Auto) 58.8, Lymphocytes (% ) (Auto) 25.9, Monocytes (%) (Auto) 8.8, Eosinophils (%) (Auto) 5.3H, Basophils (%) (Auto) 1.3, Erythrocyte Sedimentation Rate [Pending], Sodium Level [Pending] , Potassium Level [Pending], Chloride Level [Pending], Carbon Dioxide Level [ Pending], Blood Urea Nitrogen [Pending], Creatinine [Pending], Estimat Glomerular Filtration Rate [Pending], Glucose Level [Pending], Calcium Level [ Pending], Phosphorus Level [Pending], Magnesium Level 2.1, Total Bilirubin [ Pending], Aspartate Amino Transf (AST/SGOT) [Pending], Alanine Aminotransferase (ALT/SGPT) [Pending], Alkaline Phosphatase [Pending], C-Reactive Protein, Quantitative 13.2H, Total Protein [Pending], Albumin [Pending], Globulin [ Pending] Current Medications Medications (Trade) Dose Ordered Sig/Blanca Route PRN Reason Start Time Stop Time Status Last Admin Dose Admin Acetaminophen (Tylenol) 650 mg Q4H PRN ORAL FEVER 08/15/19 18:34 09/14/19 18:33 Albuterol/ Ipratropium (Albuterol/ Ipratropium) 3 ml Q4H PRN HHN Shortness of Breath 08/15/19 18:34 08/20/19 18:33 Azithromycin 500 mg/Dextrose 275 ml @ 275 mls/hr Q24HRS IV 08/16/19 11:00 08/21/19 11:59 Ceftriaxone Sodium 1 gm/ Dextrose 55 ml @ 110 mls/hr Q24H IVPB 08/16/19 13:00 08/22/19 12:59 Clonidine HCl (Catapres Tab) 0.1 mg Q4H PRN ORAL SBP > 160mmHg 08/15/19 18:34 09/14/19 18:33 Dextrose (Dextrose 50%) 25 ml Q30M PRN IV Hypoglycemia 08/15/19 18:34 09/14/19 18:33 Dextrose (Dextrose 50%) 50 ml Q30M PRN IV Hypoglycemia 08/15/19 18:34 09/14/19 18:33 Heparin Sodium (Porcine) (Heparin 5000 units/ml) 5,000 units EVERY 12 HOURS SUBQ 08/15/19 21:00 09/29/19 08:59 08/15/19 21:14 Insulin Aspart (NovoLOG) BEFORE MEALS AND HS SUBQ 08/15/19 21:00 09/14/19 11:29 08/15/19 21:15 Ondansetron HCl (Zofran) 4 mg Q6H PRN IVP Nausea & Vomiting 08/15/19 18:34 09/14/19 18:33 Polyethylene Glycol (Miralax) 17 gm DAILYPRN PRN ORAL Constipation 08/15/19 18:35 09/14/19 18:34 Promethazine HCl/ Codeine (Phenergan with Codeine) 5 ml Q4H PRN ORAL For Cough 08/15/19 18:35 09/14/19 18:34 Toshia Wyatt TECHNICIAN [employer]ICAL HE[employer] Aug 16, 2019 07:22
[2019-08-16 08:00] VITALS: BP 136/82
[2019-08-16] MEDS: Heparin 5000 units/ml inj SUBQ SCH (09:57)
--- NOTE | 2019-08-16 10:19 | Consultation ---
History of Present Illness General Date patient seen: Aug 16, 2019 Time patient seen: 10:17 Chief Complaint: cough Reason for Consultation: pneumonia Present Illness HPI 64yo gentleman with PMH tobacco abuse, DM, dyslipidemia. Pt presents wtih 2 days of sore throat, dry cough, sinus pressure and fatigue. Denies fever, chills , diarrhea, SOB, diaphoresis, chest pain, abdominal pain, diarrhea, dysuria, rash, joint pain. Pt currently feels much better. Denies travel. Denies sick contacts. 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 Allergies: Coded Allergies: No Known Allergies (Unverified , 06/29/13) Medication History Scheduled Albuterol Sulfate* (Albuterol Sulfate Mdi*), 2 PUFF INH Q3H Ibuprofen (Ibuprofen), 400 MG PO EVERY 8 HOURS Metformin Hcl* (Metformin Hcl*), 500 MG ORAL TWICE A DAY Discontinued Medications Clotrimazole* (Lotrimin*), 1 APPLIC TOPIC TWICE A DAY Discontinued Reason: Therapy completed Cyclobenzaprine Hcl* (Flexeril*), 10 MG ORAL THREE TIMES A DAY Discontinued Reason: Therapy completed Levofloxacin* (Levaquin*), 750 MG ORAL DAILY Discontinued Reason: Therapy completed Oseltamivir Phosphate (Tamiflu), 75 MG ORAL TWICE A DAY Discontinued Reason: Therapy completed Patient History Healthcare decision maker Resuscitation status Full Code Advanced Directive on File Review of Systems All Other Systems: negative except mentioned in HPI Physical Exam General Appearance: no apparent distress, alert HEENT: normocephalic, atraumatic, anicteric, mucous membranes moist, EOMI, supple Neck: non-tender, normal alignment, supple Respiratory/Chest: chest wall non-tender, lungs clear, normal breath sounds, no respiratory distress, no accessory muscle use Cardiovascular/Chest: normal rate, regular rhythm, no gallop/murmur Abdomen: normal bowel sounds, non tender, soft, no mass Extremities: normal range of motion, non-tender, normal inspection, no calf tenderness, non-pitting, no edema Skin Exam: normal pigmentation, warm/dry Neurologic: alert, oriented x 3, responsive, normal mood/affect Last 24 Hour Vital Signs Date Time Temp Pulse Resp B/P (MAP) Pulse Ox O2 Delivery O2 Flow Rate FiO2 08/16/19 09:00 Room Air 08/16/19 08:00 98.4 77 18 136/82 (100) 95 08/16/19 04:00 98.5 65 18 126/66 (86) 96 08/15/19 21:00 Room Air 08/15/19 20:00 98.5 72 18 112/81 (91) 93 08/15/19 18:23 98.8 74 18 126/72 (90) 93 08/15/19 16:00 66 08/15/19 16:00 97.9 67 18 109/54 (72) 94 08/15/19 12:00 76 08/15/19 12:00 98.1 73 18 130/74 (92) 96 Intake and Output 08/15/19 08/16/19 19:00 07:00 Intake Total 700 ml Balance 700 ml Intake Oral 700 ml # Voids 4 2 Laboratory Tests Test 08/16/19 06:10 White Blood Count 11.5 K/UL (4.8-10.8) H Red Blood Count 4.85 M/UL (4.70-6.10) Hemoglobin 14.1 G/DL (14.2-18.0) L Hematocrit 41.1 % (42.0-52.0) L Mean Corpuscular Volume 85 FL (80-99) Mean Corpuscular Hemoglobin 29.0 PG (27.0-31.0) Mean Corpuscular Hemoglobin Concent 34.2 G/DL (32.0-36.0) Red Cell Distribution Width 11.7 % (11.6-14.8) Platelet Count 220 K/UL (150-450) Mean Platelet Volume 7.4 FL (6.5-10.1) Neutrophils (%) (Auto) 58.8 % (45.0-75.0) Lymphocytes (%) (Auto) 25.9 % (20.0-45.0) Monocytes (%) (Auto) 8.8 % (1.0-10.0) Eosinophils (%) (Auto) 5.3 % (0.0-3.0) H Basophils (%) (Auto) 1.3 % (0.0-2.0) Erythrocyte Sedimentation Rate 75 MM/HR (0-20) H Sodium Level 140 MMOL/L (136-145) Potassium Level 3.7 MMOL/L (3.5-5.1) Chloride Level 105 MMOL/L (98-107) Carbon Dioxide Level 25 MMOL/L (21-32) Anion Gap 10 mmol/L (5-15) Blood Urea Nitrogen 23 mg/dL (7-18) H Creatinine 1.1 MG/DL (0.55-1.30) Estimat Glomerular Filtration Rate > 60 mL/min (>60) Glucose Level 141 MG/DL (74-106) H Calcium Level 9.1 MG/DL (8.5-10.1) Phosphorus Level 3.0 MG/DL (2.5-4.9) Magnesium Level 2.1 MG/DL (1.8-2.4) Total Bilirubin 0.5 MG/DL (0.2-1.0) Aspartate Amino Transf (AST/SGOT) 18 U/L (15-37) Alanine Aminotransferase (ALT/SGPT) 22 U/L (12-78) Alkaline Phosphatase 40 U/L (46-116) L C-Reactive Protein, Quantitative 13.2 mg/dL (0.00-0.90) H Total Protein 7.0 G/DL (6.4-8.2) Albumin 2.9 G/DL (3.4-5.0) L Globulin 4.1 g/dL Albumin/Globulin Ratio 0.7 (1.0-2.7) L Height (Feet): 5 Height (Inches): 10.00 Weight (Pounds): 220 Medications Current Medications Medications (Trade) Dose Ordered Sig/Blanca Route PRN Reason Start Time Stop Time Status Last Admin Dose Admin Acetaminophen (Tylenol) 650 mg Q4H PRN ORAL FEVER 08/15/19 18:34 09/14/19 18:33 Albuterol/ Ipratropium (Albuterol/ Ipratropium) 3 ml Q4H PRN HHN Shortness of Breath 08/15/19 18:34 08/20/19 18:33 Azithromycin 500 mg/Dextrose 275 ml @ 275 mls/hr Q24HRS IV 08/16/19 11:00 08/21/19 11:59 Ceftriaxone Sodium 1 gm/ Dextrose 55 ml @ 110 mls/hr Q24H IVPB 08/16/19 13:00 08/22/19 12:59 Clonidine HCl (Catapres Tab) 0.1 mg Q4H PRN ORAL SBP > 160mmHg 08/15/19 18:34 09/14/19 18:33 Dextrose (Dextrose 50%) 25 ml Q30M PRN IV Hypoglycemia 08/15/19 18:34 09/14/19 18:33 Dextrose (Dextrose 50%) 50 ml Q30M PRN IV Hypoglycemia 08/15/19 18:34 09/14/19 18:33 Heparin Sodium (Porcine) (Heparin 5000 units/ml) 5,000 units EVERY 12 HOURS SUBQ 08/15/19 21:00 09/29/19 08:59 08/16/19 09:57 Insulin Aspart (NovoLOG) BEFORE MEALS AND HS SUBQ 08/15/19 21:00 09/14/19 11:29 08/15/19 21:15 Ondansetron HCl (Zofran) 4 mg Q6H PRN IVP Nausea & Vomiting 08/15/19 18:34 09/14/19 18:33 Polyethylene Glycol (Miralax) 17 gm DAILYPRN PRN ORAL Constipation 08/15/19 18:35 09/14/19 18:34 Promethazine HCl/ Codeine (Phenergan with Codeine) 5 ml Q4H PRN ORAL For Cough 08/15/19 18:35 09/14/19 18:34 08/16/19 09:59 Assessment/Plan Assessment/Plan: Afebrile Leukocytosis, improving RA Bronchitis CXR: negative flu swab negative CT chest: No evidence of pneumonia. Minimal peripheral interstitial prominence at the periphery of the lung bases probably chronic. This may be due to mild scarring but is nonspecific. 5 mm nodule in the middle lobe. Recommend follow-up CT chest in 6 months per Fleischner Society criteria. Minimal right apical paraseptal bleb formation. This is nonspecific. Mild arterial vascular disease. Cholelithiasis incidentally noted h/o tobacco abuse, quit 4 yrs ago DM Dyslipidemia Plan: continue Ceftriaxone and azithromycin #1 from an ID standpoint, pt can be DCed home with azithromycin for total of 5 days and home quarantine for 14 days from symptom onset or until symptoms resolve(standard of care for any respiratory illness). pt has no fevers and CT chest not suggestive of viral pneumonia. if discharged, return precautions discussed monitor temp and CBC f/u bcx discussed with daughter and nurse Thank you for this consult. [facility] will continue to follow the patient with you. Venkat Thomas MD Aug 16, 2019 10:19
[2019-08-16] MEDS ORDERED: ACETAMINOPHEN325 M1 ORAL (10:33)
[2019-08-16] MEDS ORDERED: CEFTRIAXON1 GM/50 ML IV (10:34)
[2019-08-16] MEDS ORDERED: AZITHROMYCIN500 M1 IVPB (10:34)
[2019-08-16] MEDS ORDERED: CLONIDINE HCL0.1 MG PO (10:35)
[2019-08-16] MEDS ORDERED: PROMETHAZINE-C118 M1 ORAL (10:35)
[2019-08-16] MEDS ORDERED: HEPARIN SO5000 UNIT2 SUBQ (10:36)
[2019-08-16] MEDS ORDERED: NOVOLOG100 UNIT/4 SQ (10:37)
[2019-08-16] MEDS ORDERED: MIRALAX17 G2 ORAL (10:38)
[2019-08-16] MEDS ORDERED: ZOFRAN 4 MG4 MG/2 ML IV (10:38)
[2019-08-16] MEDS ORDERED: DUONEB 0.5-3(2.53 ML HHN (10:38)
[2019-08-16] MEDS ORDERED: Azithromycin 500 MG in D5W 275 ML IV SCH (11:00)
[2019-08-16] MEDS ORDERED: cefTRIAXone 1 GM in D5W 55 ML IVPB SCH (13:00)
--- NOTE | 2019-08-18 12:52 | Discharge Summary ---
Discharge Summary Discharge Summary _ DATE OF ADMISSION: 08/15/2019 DATE OF DISCHARGE: 08/16/2019 DISCHARGED BY: Dr. martinez REASON FOR ADMISSION: [] 64 years old male past medical history of hypertension, diabetes mellitus, presented to emergency department chief complaint of cough and sore throat for the last 2 to 3 days. Patient reported generalized weakness. No fever no chills. No known recent sick contacts. No recent travel. No headache. No smoking. Upon evaluation patient was afebrile Pulsoxymeter was stable on room air. Laboratory work-up revealed leukocytosis WBC 16.9 able hemoglobin hematocrit and platelet count. Urinalysis revealed +4 glucose +3 ketones no evidence of urinary tract infection. Stable electrolytes. BUN 24, creatinine 1.1. Glucose 136. Troponin negative. CRP 10.6. proBNP 87. Chest x-ray demonstrated no acute cardiopulmonary pathology patient subsequently admitted for further management CONSULTANTS: pulmonary Dr. Francesco WILKINS specialist Dr. Tellez [facility] COURSE: Patient admitted and started on empiric antibiotics. Influenza swab was negative for influenza A and B. CT scan of the chest demonstrated no evidence of pneumonia. 5 mm nodule in the middle lobe noted. Minimal right apical paraseptal bleb formation, nonspecific. Supplemental oxygen provided and titrated to keep pulse oximetry above 92%. Pulmonary toilet with bronchodilator provided . Antitussive provided as needed. DVT prophylaxis provided. Blood pressure was managed with home regimen of antihypertensive medication. Blood pressure remained stable. Patient quit smoking 4 years ago. Patient was advised to repeat CT scan in 6 months. Patient was counseled to continue abstinence from smoking. Blood sugar was closely moniotred, remained stable. Patient subsequently was transferred to [facility] for further management. FINAL DIAGNOSES: Acute bronchitis Lung nodule /seen on imaging Tobacco abuse/ in the past Diabetes mellitus Hypertension Morbid obesity DISCHARGE MEDICATIONS: See Medication Reconciliation list. DISCHARGE INSTRUCTIONS: Patient was transferred to [facility] for further management. Toshia Wyatt NP Aug 18, 2019 12:52
== END 2019-08-16 11:50 | disposition short-term general hospital (02) | DRG 203 ==
LOC: EMR 20:25 → 2W 08-15 01:25 → EDBEDREQ 08-15 03:52 → 4E 08-15 18:00
DX: J20.9 Acute bronchitis, unspecified (principal); E66.01 Morbid (severe) obesity due to excess calories; Z68.31 Body mass index [BMI] 31.0-31.9, adult; I10 Essential (primary) hypertension; E11.9 Type 2 diabetes mellitus without complications; R91.1 Solitary pulmonary nodule; E78.5 Hyperlipidemia, unspecified
CPT/HCPCS: 36415; 71045; 71250; 80053; 80069; 81001; 82962; 83690; 83735; 83880; 84484; 85025; 85651; 86140; 86710; 93005; 93306; 96365; 96368; 99285; J1815; J7620